=== PATIENT | female | born 1955 | race Caucasian/White ===

== ENCOUNTER 2018-05-20 16:26 | Emergency (ER) | payer BC ==
[2018-05-20 17:37] VITALS: BP 142/63
--- NOTE | 2018-05-20 17:38 | UC ---
Dizzy HPI - History Of Current Complaint Chief Complaint: UCDizziness Stated Complaint: LIGHT-HEADED,NAUSEA Time Seen by Provider: 05/20/18 16:46 Hx Obtained From: Patient ?: No Onset/Duration: Sudden Onset, Lasting Days Timing: Minutes Severity Initially: Moderate Pain Intensity: 0 Character: Lightheaded Aggravating Factor(s): Position Change, Supine To Erect Alleviating Factor(s): Lying Down, Other - cool room Associated Signs And Symptoms: Positive: Nausea - Risk Factors Cardiac Risk Factors: Diabetes, Elevated Lipids CVA Risk Factor: Diabetes - Allergies/Home Medications Allergies/Adverse Reactions: Allergies Allergy/AdvReac Type Severity Reaction Status Date / Time No Known Allergies Allergy Verified 05/20/18 16:37 Home Medications: Home Medications Cyanocobalamin (Vitamin B-12) [Vitamin B-12] 3,000 mg PO DAILY 05/20/18 [ History Confirmed 05/20/18] [place]-3 Fatty Acids (Nf) [Fish Oil (NF)] 1,000 mg PO DAILY 05/20/18 [History Confirmed 05/20/18] PMH/Surg Hx/FS Hx/Imm Hx - Additional Past Medical History Additional PMH: States she started feeling lightheaded and dizzy for the past 2 days. [place] [employer] [place] which was very [place] and humid and later on in the car, which was more hot. She states she had some nausea as well. Her FS have been normal and DM is controlled with medications. Denies vomiting/diarrhea, blurred vision, SOB or CP Previously Healthy: Yes Endocrine History: Diabetes, Dyslipidemia Psychological History: Depression - Surgical History Surgical History: Yes Surgery Procedure, Year, and Place: left shoulder 10/2017 - Family History Known Family History: Positive: Diabetes Negative: Hypertension - Social History Alcohol Use: Occasionally Alcohol Amount: wine, beer Substance Use Type: None Smoking Status (MU): Former Smoker Type: Cigarettes Review of Systems Constitutional: Negative Neurological: Other - dizziness All Other Systems Reviewed And Are Negative: Yes Physical Exam Triage Information Reviewed: Yes Appearance: Well-Appearing, No Pain Distress, Obese Vital Signs: Initial Vital Signs Temp 98.9 F 05/20/18 16:32 Pulse 86 05/20/18 16:32 Resp 20 05/20/18 16:32 BP 159/66 05/20/18 16:32 Pulse Ox 98 05/20/18 16:32 Vital Signs Reviewed: Yes Eyes: Positive: Conjunctiva Clear ENT: Positive: Hearing grossly normal, Pharynx normal Neck: Positive: Supple, Nontender, No Lymphadenopathy Respiratory: Positive: Chest non-tender, Lungs clear, Normal breath sounds, No respiratory distress Cardiovascular: Positive: RRR, No Murmur, Pulses Normal, Brisk Capillary Refill Abdomen Description: Positive: Nontender, No Organomegaly, Soft Bowel Sounds: Positive: Present Musculoskeletal: Positive: Strength Intact, ROM Intact Neurological: Positive: Alert, Muscle Tone Normal, Other: - normal gait Dizzy Course/Dx - Course Course Of Treatment: patient is asymptomatic in the clinic. UA shows leukocytes , to start macrobid as prescribed and keep herself well hydrated. f/u with PCP for monitoring of BP and to consider adding an DEANNA inhibitor. - Differential Dx/Diagnosis Provider Diagnoses: Heat exhaustion. UTI. HTN Discharge - Sign-Out/Discharge Documenting (check all that apply): Patient Departure, Post-Discharge Follow Up - Discharge Plan Condition: Good Disposition: HOME Prescriptions: Nitrofurantoin Monohyd/M-Cryst [Macrobid 100 mg Capsule] 100 mg PO BID #14 cap Patient Education Materials: Hypertension (ED), Urinary Tract Infection in Women (ED), Heat Exhaustion (ED), Nitrofurantoin Combination (By mouth) Referrals: Chalino Freedman MD [Primary Care Provider] - - Billing Disposition and Condition Condition: GOOD Disposition: Home
== END 2018-05-20 17:47 | disposition home or self-care (01) ==
LOC: UCEAST 16:26
DX: T67.5XXA Heat exhaustion, unspecified, initial encounter (principal); X30.XXXA Exposure to excessive natural heat, initial encounter; Y93.9 Activity, unspecified; Y92.9 Unspecified place or not applicable; R11.0 Nausea; N39.0 Urinary tract infection, site not specified; I10 Essential (primary) hypertension; E11.9 Type 2 diabetes mellitus without complications; Z87.891 Personal history of nicotine dependence
CPT/HCPCS: 81003; 87086; 99212; G0463

== ENCOUNTER 2018-09-22 11:24 | Emergency (ER) | payer BC ==
[2018-09-22 11:38] VITALS: BP 120/60
--- NOTE | 2018-09-22 11:41 | UC ---
Lower Extremity/Ankle HPI - HPI Summary HPI Summary: 63 y/o female presents to the urgent care c/o Rt ankle pain s/p slipping on the ice while coming out of her car last night. Pt states she twisted her RT ankle on the medial side and then fell. She hasn't been able to bear any weight. She has taken Advil PO 400mg PO to alleviate symptoms. Pain is sharp 10/10 w/ movement and 5/10 at rest. Pt denies numbness or tingling sensation over the RT ankle and foot. Pt denies previous injury to her ankle, calf pain, SOB, chest pain, abdominal pain, N/V/D. - History of Current Complaint Chief Complaint: UCLowerExtremity Stated Complaint: ANKLE INJURY Time Seen by Provider: 09/22/18 11:40 Hx Obtained From: Patient Onset/Duration: Sudden Onset, Lasting Days - 1 day, Still Present, Worse Since - this morning Severity Initially: Moderate Severity Currently: Severe Pain Intensity: 10 Pain Scale Used: 0-10 Numeric Aggravating Factor(s): Standing, Ambulation Alleviating Factor(s): Rest, Elevation, OTC Meds Able to Bear Weight: No - Risk Factors Gout Risk Factors: Diabetes DVT Risk Factors: Negative Septic Arthritis Risk Factor: Negative - Allergies/Home Medications Allergies/Adverse Reactions: Allergies Allergy/AdvReac Type Severity Reaction Status Date / Time No Known Allergies Allergy Verified 09/22/18 11:38 PMH/Surg Hx/FS Hx/Imm Hx Previously Healthy: Yes Endocrine History: Diabetes, Dyslipidemia - Surgical History Surgical History: Yes Surgery Procedure, Year, and Place: left shoulder 10/2017 - Family History Known Family History: Positive: Diabetes Negative: Hypertension - Social History Occupation: Employed Full-time Lives: With Family Alcohol Use: Occasionally Alcohol Amount: wine, beer Substance Use Type: None Smoking Status (MU): Former Smoker Type: Cigarettes Review of Systems All Other Systems Reviewed And Are Negative: Yes Constitutional: Positive: Negative Skin: Positive: Other - RT ankle swelling and bruise s/p fall Eyes: Positive: Negative ENT: Positive: Negative Respiratory: Positive: Negative Cardiovascular: Positive: Negative Gastrointestinal: Positive: Negative Genitourinary: Positive: Negative Motor: Positive: Negative Neurovascular: Positive: Negative Musculoskeletal: Positive: Decreased ROM - Rt ankle, Other: - Rt ankle pain s/p fall on ice Neurological: Positive: Negative Psychological: Positive: Negative Is Patient Immunocompromised?: No Physical Exam - Summary Physical Exam Summary: Vital Signs Reviewed: Yes General: well developed, well nourished female, sitting in the examining table w /o any apparent distress Eyes: Positive: Conjunctiva Clear - PERRLA, EOMI, ENT: Positive: Normal ENT inspection, Hearing grossly normal, Pharynx normal, TMs normal Neck: Positive: Supple, Nontender, No Lymphadenopathy Respiratory: Positive: Chest non-tender, Lungs clear, Normal breath sounds, No respiratory distress Cardiovascular: Positive: RRR, No Murmur, Pulses Normal, Brisk Capillary Refill Abdomen Description: Positive: Nontender, No Organomegaly, Soft. Negative: CVA Tenderness (R), CVA Tenderness (L) Bowel Sounds: Positive: Present Musculoskeletal: - Ankle: Pt is unable to bear weight. The R ankle is with moderate deformity on the medial malleolus w/ soft tissue swelling, bruising and tender to palpation when compared to the L ankle. Decreased ROM due to pain. Moderate swelling at the lateral and medial malleolus, with tenderness to palpation. Talar tilt test unable to perform due to pain. Negative anterior drawer. Positive sensation over the Rt foot and Rt ankle, positive pulses, capillary refill intact. Pt can move toes w/o any difficulty. Neurological Exam: Normal Psychological Exam: Normal Skin: warm and dry Triage Information Reviewed: Yes Vital Signs: Initial Vital Signs Temp 98 F 09/22/18 11:36 Pulse 99 09/22/18 11:36 Resp 17 09/22/18 11:36 BP 120/60 09/22/18 11:36 Pulse Ox 100 09/22/18 11:36 Lower Extremity Course/Dx - Course Course Of Treatment: 63 y/o female presents to the urgent care c/o Rt ankle pain s/p slipping on the ice while coming out of her car last night. Pt states she twisted her RT ankle on the medial side and then fell. She hasn't been able to bear any weight. She has taken Advil PO 400mg PO to alleviate symptoms. Pain is sharp 10/10 w/ movement and 5/10 at rest. Pt denies numbness or tingling sensation over the RT ankle and foot. Pt denies previous injury to her ankle, calf pain, SOB, chest pain, abdominal pain, N/V/D. Hx obtained. LF ankle X-ray ordered, Impression: dislocated bimalleolar RT ankle fracture including likely injury to the distal tibiofibular syndesmosis. I discussed Pt's symptoms w/ Orthopedic Dr Braxton who recommended to send Pt to the ER for reduction of Rt ankle racture. Pt immobilized with Ortho glass posterior splint. There was no neurovascular compromise after splint application; the splint was in good alignment and the pt had good sensation and capillary refill at the time of discharge. Pt given [place] PO by the nurse for pain Pt ofered ambulance transferand the risks of not taking transfer. Pt declined and stated her will take her to the [facility] ER by private car. Pt left the clinic hemodynamically stable, A&Ox3 on the wheelchair. - Differential Dx/Diagnosis Differential Diagnosis/HQI/PQRI: Contusion, Fracture (Closed), Fracture (Open), Sprain, Strain, Tendonitis Provider Diagnosis: Acute right ankle pain, Fracture dislocation of right ankle joint - Physician Notifications Discussed Patient Care With: Celeste Braxton - DR Braxton recommended to sent Pt to the ER for reduction of the Bimalleolar RT ankle fracture. Discharge - Sign-Out/Discharge Documenting (check all that apply): Patient Departure - d/C home All imaging exams completed and their final reports reviewed: Yes - Discharge Plan Condition: Stable Disposition: HOME-RECOMMEND TO ED Patient Education Materials: Ankle Fracture (ED) Referrals: Chalino Freedman MD [Primary Care Provider] - Additional Instructions: I think you need a higher level or care for your Dislocated Bimalleolar RT ankle fracture . I highly recommend you to go to the ER for further evaluation and treatment. I spoke to Orthopedic typewriter ribbon winder DR Fox johnson recoomended to go to the ER for reduction of your fracture. The risks of not going can be compartment syndrome, loosing your foot. I spoke to the ER w/ DIAAN Jimenez in regard to your symptoms. . They are expecting you. - Billing Disposition and Condition Condition: STABLE Disposition: Home-Recommend to ED
[2018-09-22] MEDS ORDERED: HYDROcodone/ACETAMIN 5-325 MG* 1 TAB PO ONE (12:46)
== END 2018-09-22 13:25 | disposition home health service (06) ==
LOC: UCEAST 11:24
DX: S82.841A Displaced bimalleolar fracture of right lower leg, initial encounter for closed fracture (principal); V48.4XXA Person boarding or alighting a car injured in noncollision transport accident, initial encounter; Y92.9 Unspecified place or not applicable; F17.210 Nicotine dependence, cigarettes, uncomplicated; E11.9 Type 2 diabetes mellitus without complications
CPT/HCPCS: 99212; G0463

== ENCOUNTER → 2018-09-22 13:42 | Emergency (ER) | payer BC ==
[~2018-09-22 13:42] MED LIST: Flumazenil* 0.1 MG/ML 5 ML MDV ONE; Midazolam* 1 MG/ML 10 ML VIAL (10 MG) IV ONE; Naloxone* 0.4 MG/ML 10 ML VIAL ONE; fentaNYL* 50 MCG/ML 2 ML VIAL (100 MCG VIAL) IV SLOW PU ONE
--- NOTE | 2018-09-22 14:13 | ED ---
Lower Extremity - HPI Summary HPI Summary: A 63 y/o female presents to [facility] with a chief complaint of right ankle pain after slipping on ice at 20:00 09/21/18. She was seen at , had an x-ray completed and was given 1 Jarratt. She admits to her right ankle being swollen. She rates her pain as 6/10. She reports having shoulder surgery in 2017 without any complications. - History of Current Complaint Chief Complaint: EDExtremityLower Stated Complaint: RT ANKLE INJURY Time Seen by Provider: 09/22/18 13:55 Hx Obtained From: Patient Mechanism Of Injury: Fall From A Standing Position Onset of Pain: Immediate Onset/Duration: Hours Severity Initially: Moderate Severity Currently: Moderate Pain Intensity: 6 Pain Scale Used: 0-10 Numeric Timing: Constant Location: Is Discrete @ - right ankle - Allergies/Home Medications Allergies/Adverse Reactions: Allergies Allergy/AdvReac Type Severity Reaction Status Date / Time No Known Allergies Allergy Verified 09/22/18 13:47 PMH/Surg Hx/FS Hx/Imm Hx Endocrine/Hematology History: Reports: Hx Diabetes - on insulin, Hx Thyroid Disease Denies: Hx Anemia Cardiovascular History: Reports: Hx Hypercholesterolemia Denies: Hx Hypertension, Hx Pacemaker/ICD Respiratory History: Denies: Hx Asthma, Hx Chronic Obstructive Pulmonary Disease (COPD) GI History: Denies: Hx Jaundice, Hx Ulcer Sensory History: Denies: Hx Contacts or Glasses, Hx Hearing Aid Opthamlomology History: Denies: Hx Contacts or Glasses Neurological History: Denies: Hx CVA, Hx Headaches Psychiatric History: Denies: Hx Panic Disorder - Surgical History Surgery Procedure, Year, and Place: left shoulder 10/2017 Infectious Disease History: No Infectious Disease History: Denies: Hx Hepatitis, Hx Human Immunodeficiency Virus (HIV), Traveled Outside the [place] in Last 30 Days - Family History Known Family History: Positive: Diabetes Negative: Hypertension - Social History Alcohol Use: Occasionally Alcohol Amount: wine, beer Hx Substance Use: No Substance Use Type: Reports: None Hx Tobacco Use: No Smoking Status (MU): Former Smoker Type: Cigarettes Review of Systems Negative: Fever Positive: Arthralgia - right ankle pain, Edema All Other Systems Reviewed And Are Negative: Yes Physical Exam - Summary Physical Exam Summary: Appearance: The patient is well-nourished in no acute distress and in no acute pain. Skin: The skin is warm and dry and skin color reflects adequate perfusion. HEENT: The head is normocephalic and atraumatic. The pupils are equal and reactive. The conjunctivae are clear and without drainage. Nares are patent and without drainage. Mouth reveals moist mucous membranes and the throat is without erythema and exudate. The external ears are intact. The ear canals are patent and without drainage. The tympanic membranes are intact. Neck: The neck is supple with full range of motion and non-tender. There are no carotid bruits. There is no neck vein distension. Respiratory: Chest is non-tender. Lungs are clear to auscultation and breath sounds are symmetrical and equal. Cardiovascular: Heart is regular rate and rhythm. There is no murmur or rub auscultated. There is no peripheral edema and pulses are symmetrical and equal. Abdomen: The abdomen is soft and non-tender. There are normal bowel sounds heard in all four quadrants and there is no organomegaly palpated. Musculoskeletal: Right ankle splint in place. There is good capillary refill. There is no back tenderness noted. Extremities are non-tender with full range of motion. There is no peripheral edema or calf tenderness elicited. Neurological: Patient is alert and oriented to person, place and time. The patient has symmetrical motor strength in all four extremities. Cranial nerves are grossly intact. Deep tendon reflexes are symmetrical and equal in all four extremities. Psychiatric: The patient has an appropriate affect and does not exhibit any anxiety or depression. Triage Information Reviewed: Yes Vital Signs On Initial Exam: Initial Vitals Temp Pulse Resp BP Pulse Ox 98.7 F 89 16 121/62 97 09/22/18 13:45 09/22/18 13:45 09/22/18 13:45 09/22/18 13:45 09/22/18 13:45 Vital Signs Reviewed: Yes Procedures - Procedure Summary Procedure Summary: Moderate Conscious Sedation was performed after consent and exam. She tolerated it well and was able to answer questions at all times. - Splinting Right Lower Extremity Hand-Made Type: orthoglass Splint: posterior with sidebars - Joint Reduction Right Joint Reduction Site: ankle (R) Conscious Sedation: Yes - Fentanyl 100 micrograms, Versed 6mgs Reduction Attempts: 1 Pre-Procedure NV Exam: Yes Post Joint Reduction Film: joint reduced Diagnostics - Vital Signs Vital Signs Temp Pulse Resp BP Pulse Ox 09/22/18 13:45 98.7 F 89 16 121/62 97 - Laboratory Lab Statement: Any lab studies that have been ordered have been reviewed, and results considered in the medical decision making process. - Radiology Right Ankle Radiology Interpretation Completed By: ED Physician Summary of Radiographic Findings: Reduced, Slightly subluxed still. Re-Evaluation - Re-Evaluation First Eval Re-Evaluation Time: 14:20 Change: Unchanged Comment: Explained to patient the plan for conscious sedation. Second Eval Re-Evaluation Time: 16:15 Change: Unchanged Comment: Patient given conscious sedation. Lower Extremity Course/Dx - Course Course Of Treatment: Ms. Garcia slipped on the ice and fractured her right ankle. She had a fracture dislocation that was bimalleolar. [facility] and transferred over. She was given a by mouth painkiller at [facility] which helped a lot. She was nontoxic on arrival with stable vital signs and good capillary refill in her toes with the splint on. Here she was given conscious sedation and achieved moderate sedation. Her ankle was reduced and splinted and when she was up and alert again she was discharged with crutches and splint and follow-up with orthopedics. - Diagnoses Provider Diagnoses: Fracture dislocation of ankle joint Discharge - Sign-Out/Discharge Documenting (check all that apply): Patient Departure - DC - Discharge Plan Condition: Stable Disposition: HOME Prescriptions: HYDROcodone/ACETAMIN 5-325 MG* [Jarratt 5-325 TAB*] 1 tab PO Q6H PRN #20 tab MDD 4 PRN Reason: Pain Patient Education Materials: Crutch Instructions (ED), Moderate Sedation (ED) Referrals: Chalino Freedman MD [Primary Care Provider] - (2-3 days) Celeste Braxton MD [Medical Doctor] - (2-3 days) Additional Instructions: Follow up with orthopedics this week. Return to the ED if you experience any new or worsening symptoms. - Billing Disposition and Condition Condition: STABLE Disposition: Home - Attestation Statements Document Initiated by Scribe: Yes Documenting Scribe: Mike Purvis Provider For Whom Scribe is Documenting (Include Credential): Yaniv Bill MD Scribe Attestation: Mike Garcia, scribed for Yaniv Bill MD on 09/22/18 at 1759. Scribe Documentation Reviewed: Yes Provider Attestation: The documentation as recorded by the scribe, Mike Purvis accurately reflects the service I personally performed and the decisions made by me, Yaniv Bill MD Status of Scribe Document: Viewed
--- NOTE | 2018-09-22 16:34 | PN ---
Progress Note - Progress Note Date of Service: 09/22/18 Note: Reduction left ankle fracture: Please see Dr. Bill's ED note for procedural sedation. Gentle traction and countertraction used to reduce left ankle fracture. Good palpable pre and post reduction pedal pulse. Ankle splinted with posterior and stirrup splint use orthoglass. Pt. tolerated well. Post reduction xray shows better fracture alignment and better alignment of mortise.
[2018-09-22 17:47] VITALS: BP 132/65
== END | disposition home or self-care (01) ==
LOC: ED 13:42
DX: S82.841A Displaced bimalleolar fracture of right lower leg, initial encounter for closed fracture (principal); W00.0XXA Fall on same level due to ice and snow, initial encounter; Y92.9 Unspecified place or not applicable; E11.9 Type 2 diabetes mellitus without complications; Z79.4 Long term (current) use of insulin; Z87.891 Personal history of nicotine dependence
CPT/HCPCS: 27810; 99156; 99285; J2250; J2310; J3010

== ENCOUNTER 2018-09-26 08:05 | Day surgery (SDC) | payer BC ==
[~2018-09-26 08:05] MED LIST changes: +Buffered Lidocaine 0.9% SYRIN* 5 ML/SYR SYRINGE INTRADERM ONE; +Famotidine IV* 10 MG/ML 2 ML (20 mg) IV ONE; -Flumazenil* 0.1 MG/ML 5 ML MDV ONE; -Midazolam* 1 MG/ML 10 ML VIAL (10 MG) IV ONE; -Naloxone* 0.4 MG/ML 10 ML VIAL ONE; -fentaNYL* 50 MCG/ML 2 ML VIAL (100 MCG VIAL) IV SLOW PU ONE
[2018-09-26] MEDS ORDERED: ceFAZolin 2 GM PREMIX in ORs 2 GM/50 ML BAG IVPB ONE (08:21)
[2018-09-26] MEDS ORDERED: Famotidine IV* 10 MG/ML 2 ML (20 mg) ONE (08:21)
[2018-09-26] MEDS ORDERED: Insulin REGULAR(*) 1 UNITS UNIT SUBCUT ONE (09:29)
[2018-09-26] MEDS ORDERED: oxyCODONE TAB* 5 MG TAB PO PRN (09:31)
[2018-09-26] MEDS ORDERED: Acetaminophen TAB* 325 MG PO PRN (09:31)
[2018-09-26] MEDS ORDERED: HYDROmorphone INJ1* 1 MG/ML SYRINGE IV PRN (09:31)
[2018-09-26] MEDS ORDERED: Naloxone* 0.4 MG/ML 1 ML VIAL IV PRN (09:31)
[2018-09-26] MEDS ORDERED: DiMENhydriNATE IV* 50 MG/ML VIAL IV PUSH PRN (09:31)
[2018-09-26] MEDS ORDERED: Insulin REGULAR(*) 1 UNITS UNIT ONE (09:37)
[2018-09-26] MEDS ORDERED: Lidocaine 2% PF * 5 ML VIAL ONE (09:53)
[2018-09-26] MEDS ORDERED: Propofol* 10 MG/ML 20 ML BTL ONE (09:53)
[2018-09-26] MEDS ORDERED: Midazolam* 1 MG/ML 5 ML VIAL (5 MG) ONE (09:53)
[2018-09-26] MEDS ORDERED: Dexamethasone IV* 4 MG/ML 1 ML (4 MG) ONE (09:53)
[2018-09-26] MEDS ORDERED: Ketorolac INJ* 30 MG/ML 1 ML VIAL ONE (09:53)
[2018-09-26] MEDS ORDERED: Ondansetron INJ* 2 MG/ML VIAL ONE (09:53)
[2018-09-26] MEDS ORDERED: DiMENhydriNATE IV* 50 MG/ML VIAL ONE (09:53)
[2018-09-26] MEDS ORDERED: fentaNYL* 50 MCG/ML 2 ML VIAL (100 MCG VIAL) ONE ×2 (09:53→10:27)
[2018-09-26] MEDS ORDERED: HYDROmorphone INJ1* 1 MG/ML SYRINGE ONE (10:54)
[2018-09-26] MEDS ORDERED: Bupivacaine 0.5% PF 10 ML VIAL INJ ONE (11:14)
--- NOTE | 2018-09-26 12:36 | OP ---
Operative Report - Blank - Operative Report Date of Operation: 09/26/18 Note: PATIENT: Meghna Garcia DATE OF : 1955 DATE OF SURGERY: 09/26/2018 SURGEON: Indra Alva MD ADDICTION PSYCHIATRIST: DIANA Mccoy, whos assistance was necessary for positioning, retraction, help with instrumentation, and closure. ANESTHESIOLOGIST: Dr. Fortune PREOPERATIVE DIAGNOSIS: Right bimalleolar ankle fracture POSTOPERATIVE DIAGNOSIS: Right bimalleolar ankle fracture OPERATION: 1. Right bimalleolar ankle fracture open reduction and internal fixation. 2. Stress views performed by surgeon utilizing fluoroscopy under anesthesia. ANESTHESIA: GETA IMPLANTS: Arthrex plate and screws TOURNIQUET TIME: 1 hour with a well-padded thigh tourniquet at 250mmHg SPECIMENS: none ESTIMATED BLOOD LOSS: minimal COMPLICATIONS: none STATUS: Stable from the operating room to the recovery room and then home. INDICATIONS FOR PROCEDURE: Meghna sustained a closed right ankle fracture-dislocation that was close reduced in the ER. Both operative and non operative treatment alternatives were reviewed. Further, the nature and risks of surgery were reviewed in careful detail, in the office as well as the pre-operative holding area. Our discussions regarding the risks of surgery included, but were not limited to, infection, wound problems, nerve injury, neuroma, RSD, persistent symptoms, blood clot, nonunion, malunion, post-traumatic arthritis, hardware failure, failure of the surgery, and even the remote chance of catastrophic complication , including loss of limb. DESCRIPTION OF PROCEDURE: The patient was seen in the preoperative holding unit and informed written consent was obtained. The appropriate extremity was marked. The patient was then brought to the operating room and carefully positioned on the operating room table. Anesthesia was induced. All bony prominences were padded with great care. A well-padded thigh tourniquet was placed. A chlorhexidine based pre- scrub was performed followed by a chloraprep prep and drape in standard sterile fashion. A surgical safety pause was then conducted in which we confirmed the appropriate patient, extremity, planned procedure, availability of equipment, indication and administration of prophylactic antibiotics, and DVT prophylaxis in the form of a compression boot on the non-surgical extremity. I began with Esmarch exsanguination of the limb and inflated the tourniquet. I then utilized a laterally based incision overlying the distal fibula. Great care was taken to protect the superficial peroneal nerve, which was not visualized within the field of view. I dissected down through the soft tissue layers to expose the distal fibula. I then exposed the fracture. Fracture hematoma was removed. I gained a reduction utilizing a pointed reduction clamp. I placed an Arthrex distal fibula plate laterally and then confirmed the reduction and the position of the plate fluoroscopically. I placed screws to hold the plate to the bone. The provisional fixation was removed and then I again confirmed fluoroscopically the appropriate position of the plate and screw lengths. I made an approximately 4cm incision over the medial malleolus. The fracture was exposed and hematoma was removed. Reduction of the medial malleolar fracture was obtained with a pointed reduction clamp. I placed guidewires for 4.0 mm cannulated screws. I confirmed the position of the guidewires fluoroscopically. I then overdrilled both wires and placed two 46mm partially threaded 4.0 mm cannulated screws. I then removed the guidewires and obtained fluoroscopic images. At this point, I performed a stress fluoroscopic examination. I utilized a Cotton test, as well as an external rotation stress test, to evaluate the distal tib-fib syndesmosis. There was no instability appreciated through the syndesmosis. I also directly visualized the syndesmosis and did not appreciate any instability. At this point, we irrigated copiously and then closed in layers meticulously utilizing 3-0 Monocryl for the deep and subdermal layers and 3-0 Nylon for the skin. A sterile dressing was then applied followed by a splint with the ankle in a neutral position. The patient was then awakened from anesthesia and transferred to the recovery room in stable condition. There were no complications. All needle and sponge counts were correct at the end of the case. ATTESTATION: I attest I was present and scrubbed and performed the critical portions of the procedure myself. POSTOPERATIVE PLAN: The postop plan is for [id number] for an anticipated duration of 6 weeks. Follow-up will be in 2 weeks. At that time we will likely transition into a [id number] aircast boot.
[2018-09-26 12:44] VITALS: BP 136/48
== END 2018-09-26 12:47 | disposition home or self-care (01) ==
LOC: OR 08:05
PROVIDERS: ATTEND Orthopaedic Surgery
DX: S82.841A Displaced bimalleolar fracture of right lower leg, initial encounter for closed fracture (principal); E11.8 Type 2 diabetes mellitus with unspecified complications; W00.0XXA Fall on same level due to ice and snow, initial encounter; Y93.89 Activity, other specified; Y92.89 Other specified places as the place of occurrence of the external cause; Z79.4 Long term (current) use of insulin
CPT/HCPCS: 76001; C1713; C1776; J0690; J1100; J1170; J1240; J1885; J2250; J2405; J2704; J3010